=== PATIENT | female | born 1945 | race Caucasian/White ===

== ENCOUNTER → 2017-10-04 | Outpatient (CLI) | payer MEDICARE, OTHER ==
[~2017-10-04] MED LIST: ATOR10TA PO; CALC-98 PO; CETI10CA PO; CHOL200074 PO; EPIN0.3A4 IJ; IOHE350I IV; LORA2TAB PO; METAMUCIL425 GM PO; METF500T9 PO; METO100T5 PO; METO50TA4 PO; MULT-245 PO; SUCR1TAB PO; [UNRECOGNIZED DRUG - CODE] IV
--- NOTE | 2017-10-04 12:10 | RAD ---
EXAM: Left shoulder, 3 views. HISTORY: Pain. COMPARISON: None. FINDINGS: 3 views left shoulder obtained. There is severe glenohumeral joint space narrowing with subchondral sclerosis, subchondral cyst formation, marginal spurring and bony remodeling. There are inferior glenohumeral joint loose bodies. There is slight ossification or calcification along the distal rotator cuff insertion. IMPRESSION: 1. Severe glenohumeral osteoarthritis with joint loose bodies. 2. No acute osseous finding. Electronically signed by: Charlene Sloan MD (10/04/2017 12:06 PM) [facility]
== END | disposition home or self-care (01) ==
LOC: DXRAD 11:35
PROVIDERS: ATTEND Neuromusculoskeletal Medicine & OMM
DX: M19.012 Primary osteoarthritis, left shoulder (principal); M24.012 Loose body in left shoulder; G89.29 Other chronic pain
CPT/HCPCS: 73030

== ENCOUNTER → 2017-12-29 | Outpatient (CLI) | payer MEDICARE, OTHER ==
[~2017-12-29] MED LIST changes: +IOHEXOL 300 MG/ML 75 ML VIAL. IV ONE
[2017-12-29 11:17] LABS: GFR 54.2
--- NOTE | 2017-12-29 12:54 | RAD ---
PQRS Compliance statement: One or more of the following individualized dose reduction techniques were utilized for this examination: 1. Automated exposure control. 2. Adjustment of the mA and/or kV according to patient size. 3. Use of iterative reconstruction technique. Indication:GROSS HEMATURIA AND BILATERAL KIDNEY PAIN X2 MONTH REDUCED DOSE OMNI 300, 60ml, GFR 54 TECHNIQUE: CT abdomen and pelvis without and with IV contrast with multiplanar reformats. COMPARISON: Previous exam from 02/01/2013 FINDINGS: Heart is normal in size. Stable 3 mm nodule in the left lower lobe. Otherwise, clear lung bases. Liver, spleen, pancreas, adrenals within normal limits. Status post cholecystectomy. No nephrolithiasis or hydronephrosis. Bilateral ureters are normal in course and caliber. No enlarged retroperitoneal or pelvic adenopathy. No free pelvic fluid or ascites. No bowel obstruction. Normal appendix. Urinary bladder demonstrate no stones or focal lesion. Status post hysterectomy. No pneumoperitoneum. No suspicious bony lesion. IMPRESSION: 1. No nephrolithiasis, hydronephrosis or suspicious renal lesion. Electronically signed by: Yehuda Delgado DO (12/29/2017 12:51 PM) [id number]
== END | disposition home or self-care (01) ==
LOC: CT 10:03
PROVIDERS: ATTEND Urology
DX: R31.0 Gross hematuria (principal); Z90.49 Acquired absence of other specified parts of digestive tract
CPT/HCPCS: 36415; 74178; 82565; 84520; Q9967

== ENCOUNTER → 2018-03-07 | Outpatient (CLI) | payer MEDICARE, OTHER ==
[~2018-03-07] MED LIST changes: -IOHEXOL 300 MG/ML 75 ML VIAL. IV ONE
--- NOTE | 2018-03-07 12:14 | RAD ---
CHEST PA LATERAL CLINICAL INDICATION: Abnormal breath sounds COMPARISON: None FINDINGS: Heart is normal in size. Lungs are hyperinflated. No focal consolidation. No pneumothorax or effusion. Visualized bony thorax is within normal limits. IMPRESSION: Findings of COPD. No acute pulmonary process. Electronically signed by: Yehuda Delgado DO (03/07/2018 12:09 PM) [id number]
== END | disposition home or self-care (01) ==
LOC: RAD 11:37
PROVIDERS: ATTEND Registered Nurse
DX: J44.9 Chronic obstructive pulmonary disease, unspecified (principal)
CPT/HCPCS: 71046

== ENCOUNTER → 2018-03-15 | Outpatient (CLI) | payer MEDICARE, OTHER ==
--- NOTE | 2018-03-15 13:05 | RAD ---
EXAM: Renal sonogram; pelvic sonogram. HISTORY: Pain. TECHNIQUE: Sonographic imaging of the kidneys and pelvis were obtained. COMPARISON: CT dated 12/29/2017. FINDINGS: The right kidney measures 7.8 cm azsf-sw-qnsd. The left kidney measures 9.8 cm szof-gu-rnmx. No solid or cystic renal lesion is seen. There is no hydronephrosis. The bladder is unremarkable. The ureteral jets are both seen. The uterus is surgically absent. The right ovary is surgically absent. The left ovary is small in size, consistent with the postmenopausal status of the patient. No adnexal mass, cyst or free fluid is seen. IMPRESSION: 1. Decreased right renal size likely due to measurement technique or mild atrophy. 2. Surgically absent uterus and right ovary. The left ovary is not well seen due to small size, consistent with the postmenopausal status of the patient. Electronically signed by: Charlene Sloan MD (03/15/2018 1:01 PM) [facility]
--- NOTE | 2018-03-15 13:05 | RAD ---
EXAM: Renal sonogram; pelvic sonogram. HISTORY: Pain. TECHNIQUE: Sonographic imaging of the kidneys and pelvis were obtained. COMPARISON: CT dated 12/29/2017. FINDINGS: The right kidney measures 7.8 cm mkoc-af-xfoc. The left kidney measures 9.8 cm vtkw-uf-vmlw. No solid or cystic renal lesion is seen. There is no hydronephrosis. The bladder is unremarkable. The ureteral jets are both seen. The uterus is surgically absent. The right ovary is surgically absent. The left ovary is small in size, consistent with the postmenopausal status of the patient. No adnexal mass, cyst or free fluid is seen. IMPRESSION: 1. Decreased right renal size likely due to measurement technique or mild atrophy. 2. Surgically absent uterus and right ovary. The left ovary is not well seen due to small size, consistent with the postmenopausal status of the patient. Electronically signed by: Charlene Sloan MD (03/15/2018 1:01 PM) [facility]
== END | disposition home or self-care (01) ==
LOC: US 09:50
PROVIDERS: ATTEND Registered Nurse
DX: R10.2 Pelvic and perineal pain (principal); R10.10 Upper abdominal pain, unspecified; Z90.710 Acquired absence of both cervix and uterus; Z90.721 Acquired absence of ovaries, unilateral
CPT/HCPCS: 76770; 76830; 76856

== ENCOUNTER → 2018-06-06 | Outpatient (CLI) | payer MEDICARE, OTHER ==
[~2018-06-06] MED LIST changes: +IOHEXOL 300 MG/ML 75 ML VIAL. IV ONE
[2018-06-06 13:39] LABS: CALCIUM 9.5 mg/dL (8.5-10.1); CREATININE 0.9 mg/dL (0.6-1.0); POTASSIUM 4.1 mmol/L (3.5-5.1)
--- NOTE | 2018-06-06 16:35 | RAD ---
PQRS Compliance Statement: One or more of the following individualized dose reduction techniques were utilized for this examination: 1. Automated exposure control 2. Adjustment of the mA and/or kV according to patient size 3. Use of iterative reconstruction technique CT CHEST W/CONTRAST Clinical Indication: Abnormal breath sounds, Parkinson's disease, Pt unable to raise left arm over head. Comparison: None. Technique: Helical CT imaging of the chest is performed after 75 cc Omnipaque 350 IV contrast. Findings: The thyroid is symmetric. No adenopathy in the chest. Borderline ectatic ascending thoracic aorta. Pulmonary trunk is normal caliber. No central pulmonary embolus. Cardiac size normal, no pericardial effusion. Tortuous juxtarenal abdominal aorta. Coronary artery disease. There is no pleural effusion. The central airways are clear. There are several tree-in-bud opacities in the periphery of the posterior right upper lobe. There is focal mucous plugging in the right upper lobe, for example image 22. There is minimal scarring or atelectasis in the posterior lower lobes bilaterally. There is a 3 mm nodule in the periphery of the right lower lobe, image 55. There is an 8 mm nodular opacity in the lingula that may be atelectasis or scarring, image 69. There is a 4 mm nodule in the anterior left lower lobe, image 77. Cholecystectomy. No loss of vertebral body height in the thoracic spine. IMPRESSION: 1. There are mild tree-in-bud opacities in the periphery of the posterior right upper lobe suggestive of nonspecific bronchiolitis. There is minimal mucus plugging in the right upper lobe. Recommend appropriate therapy and follow-up CT chest in 3-6 months. 2. There are 3 noncalcified pulmonary nodules. Suggest attention on follow-up imaging. Electronically signed by: David Morrell MD (06/06/2018 4:32 PM) [id number]
== END | disposition home or self-care (01) ==
LOC: CT 12:42
PROVIDERS: ATTEND Registered Nurse
DX: R91.8 Other nonspecific abnormal finding of lung field (principal); I25.10 Atherosclerotic heart disease of native coronary artery without angina pectoris; Z90.49 Acquired absence of other specified parts of digestive tract
CPT/HCPCS: 36415; 71260; 80048; Q9967

== ENCOUNTER → 2018-11-03 | Outpatient (CLI) | payer MEDICARE, OTHER ==
[~2018-11-03] MED LIST changes: -IOHEXOL 300 MG/ML 75 ML VIAL. IV ONE; +METF500T11 PO; -METF500T9 PO
--- NOTE | 2018-11-03 09:51 | CARD ---
MR#: [id number] Date of Study: 11/03/2018 Ordering Physician: AIRAM GAMA, Referring Physician: AIRAM GAMA Tech: Yareli Blake RDCS APPROVED REPORT EXAM: Two-dimensional and M-mode echocardiogram with Doppler and color Doppler. INDICATION Hypertension/HCVD Abnormal CT Scan 2D DIMENSIONS Left Atrium(2D)2.5 (1.6-4.0cm)IVSd0.7 (0.7-1.1cm) Aortic Root(2D)2.8 (2.0-3.7cm)LVDd3.8 (3.9-5.9cm) LVOT Diameter1.6 (1.8-2.4cm)PWd0.7 (0.7-1.1cm) LVDs2.1 (2.5-4.0cm)FS (%) 30.0 % SV49.2 mlLVEF(%)60.0 (>50%) Aortic Valve AoV Peak Armen.113.6cm/sAoV VTI26.2cm AO Peak GR.5.2mmHgLVOT Peak Armen.118.5cm/s LVOT VTI 28.80cmAO Mean GR.3mmHg JAKY (VMAX)2.07ao1HLE (VTI)2.12cm2 AI P 1/2 Ieqw395pr Mitral Valve MV E Vtnpvgiw41.8cm/sMV DECEL JUYJ805gl MV A Ouhygxtd607.0cm/sE/A Ratio0.9 Tricuspid Valve TR P. Ntahtkia657um/sRAP NAIHIGSU8anAb TR Peak Gr.27nhHfNTGI59onDt Pulmonary Vein S1 Axpdqdnt95.6cm/sD2 Fcdngdhu22.6cm/s LEFT VENTRICLE The left ventricle is normal size. There is normal left ventricular wall thickness. The left ventricu lar systolic function is normal and the ejection fraction is within normal range. The Ejection Fracti on is 55-60%. There is normal LV segmental wall motion. Transmitral Doppler flow pattern is Grade I-a bnormal relaxation pattern. RIGHT VENTRICLE The right ventricle is normal size. The right ventricular systolic function is normal. ATRIA The left atrium size is normal. The right atrium size is normal. The interatrial septum is intact wit h no evidence for an atrial septal defect or patent foramen ovale as noted on 2-D or Doppler imaging. AORTIC VALVE The aortic valve is calcified but opens well. Doppler and Color Flow revealed mild aortic regurgitati on. There is no significant aortic valvular stenosis. MITRAL VALVE The mitral valve is calcified but opens well. Mitral annular calcification is mild. There is no evide nce of mitral valve prolapse. There is no mitral valve stenosis. Doppler and Color-flow revealed trac e mitral regurgitation. TRICUSPID VALVE The tricuspid valve is normal in structure and function. Doppler and Color Flow revealed trace tricus pid regurgitation. There is mild pulmonary hypertension. The PA pressure was estimated at 39 mmHg. Th ere is no tricuspid valve stenosis. PULMONIC VALVE The pulmonic valve is not well visualized. Doppler and Color Flow revealed no pulmonic valvular regur gitation. There is no pulmonic valvular stenosis. GREAT VESSELS The aortic root is normal in size. The ascending aorta is not well seen. The IVC is normal in size an d collapses >50% with inspiration. PERICARDIAL EFFUSION There is no evidence of significant pericardial effusion. Critical Notification Critical Value: No <Conclusion> The left ventricular systolic function is normal and the ejection fraction is within normal range. Th e Ejection Fraction is 55-60%. There is normal LV segmental wall motion. Doppler and Color Flow revealed mild aortic regurgitation. Doppler and Color Flow revealed trace tricuspid regurgitation. There is mild pulmonary hypertension. The PA pressure was estimated at 39 mmHg. Signed by : Julio Burns, Electronically Approved : 11/03/2018 09:51:36
[2018-11-03] MEDS: REGADENOSON 0.4 MG/5 ML DISP.SYRIN. IV ONE (11:10)
--- NOTE | 2018-11-03 12:13 | RAD ---
MR#: [id number] Date of Study: 11/03/2018 Ordering Physician: NILDA MENDEZ, Referring Physician: SATHISH ROLAND Tech: RT Brianna KellyR) (N) APPROVED REPORT Test Type: Pharmacological Stress Nurse/Tech: RT Leticia (Denia) (N) Test Indications: dyspnea on exertion, abnormal CT scan Cardiac History: none Medications: see EHR Medical History: hypertension, diabetes Resting ECG: sinus rythm Resting Heart Rate: 66 bpm Resting Blood Pressure: 145/68mmHg Pretest Chest Pain: None Nurse/Tech Notes Consent: The procedure was explained to the patient in lay terms. Informed consent was witnessed. Didier eout was entered into [facility]. History and Stress Test performed by RT Leticia (Denia) (N) Pharm. Details Pharmacologic stress testing was performed using 0.4mg per 5ml of regadenoson given intravenously ove r 7-10 seconds. POST EXERCISE Reason for Termination: Infusion complete Max HR: 125 bpm Max Blood Pressure: 175/78mmHg INTERPRETATION Stress EKG Conclusion: No acute changes were noted. Imaging Protocol IMAGE PROTOCOL: Rest Tc-99m/stress Tc-99m 1 day Rest: Stress: Viability: Radiopharm.Tc99m OcwlcvbyxHn21b Sestamibi Dose10.4mCi 31.6mCi Duration 15min. 10min. Img Date 11/03/2018 11/03/2018 Inj-Img Ijfw85vac. 60min. Rest Admin Site:IV - Left AntecubitalAdministrator: RT Leticia (Denia)(N) Stress Admin Site: IV - Left AntecubitalAdministrator: RT Reena Kelly)(N) STRESS DATA End Diast. Vol.35.0mlAv. Heart Rate78.0bpm End Syst. Vol.1.0mlCO Index BSA0.0L/min Myocardial Mass81.0gEject. Dctkzxlu63.0% Stress Rates Pk. Fill Rate4.83EDV/secLVtime Pk. Fill 246.55msec Pk. Empty Rate5.83ESV/secLVtime Pk. Gmiqe148.92msec 1/3 Pk. Fill0.16EDV/sec Stress Scores Regional WT0.00Summed WT0.00 Regional WM0.00Summed WM0.00 The rest and stress images show normal perfusion, normal contraction and thickening. LV Perf. Quant 17 Seg. SSS0.00 17 Seg. SRS0.00 17 Seg. SDS0.00 Stress Defect Extent (% LAD)0.00Rest Defect Extent (% LAD)0.00Rev. Defect Extent (% LAD)0.00 Stress Defect Extent (% LCX) 0.00Rest Defect Extent (% LCX)0.00Rev. Defect Extent (% LCX)0.00 Stress Defect Extent (% RCA)0.00Rest Defect Extent (% RCA)0.00Rev. Defect Extent (% RCA)0.00 Stress Defect Extent (% MANI)0.00Rest Defect Extent (% MANI)0.00Rev. Defect Extent (% MANI)0.00 Other Information Quality:Good Risk Assessment: Low Risk Conclusion 1. No evidence of EKG changes with stress testing. 2. Normal perfusion at stress/rest. 3. Low risk study. 4. EF > 60%. Signed by : Nilda Mendez, Electronically Approved : 11/03/2018 12:12:58
== END | disposition home or self-care (01) ==
LOC: NM 07:49
PROVIDERS: ATTEND Internal Medicine Cardiovascular Disease
DX: I08.0 Rheumatic disorders of both mitral and aortic valves (principal); I27.20 Pulmonary hypertension, unspecified; I10 Essential (primary) hypertension; E11.9 Type 2 diabetes mellitus without complications
CPT/HCPCS: 78452; 93017; 93306; A9500; J2785

== ENCOUNTER → 2018-11-15 | Outpatient (CLI) | payer MEDICARE, OTHER ==
[~2018-11-15] MED LIST changes: +IOHEXOL 240 MG/ML 50ML VIAL. ONE; +IOHEXOL 240 MG/ML 50ML VIAL. PO ONE; +IOHEXOL 300 MG/ML 75 ML VIAL. IV ONE
--- NOTE | 2018-11-15 16:21 | RAD ---
Examination: CT ABD PELV W/ORAL IV CONTRAST History: Frequent UTI, weight loss Comparison/Correlation: 12/29/2017 CT abdomen and pelvis without contrast Findings: Axial images of the abdomen and pelvis were obtained following IV and oral contrast. Sagittal and coronal reformatted images were provided. Visualized lung bases are clear. Liver, spleen, pancreas, and adrenal glands are normal. Cholecystectomy is evident. Kidneys are unremarkable. No ascites or pelvic free fluid. No enlarged lymph nodes. Limited mesenteric fat may limit assessment. No bowel obstruction or extraluminal gas. No inflammatory change about the cecum. Urinary bladder is unremarkable. Bladder is mostly decompressed. No acute bony process. Impression: No suspicious process. PQRS Compliance Statement: One or more of the following individualized dose reduction techniques were utilized for this examination: 1. Automated exposure control 2. Adjustment of the mA and/or kV according to patient size 3. Use of iterative reconstruction technique Electronically signed by: Moy Garcia MD (11/15/2018 4:18 PM) [facility]
== END | disposition home or self-care (01) ==
LOC: CT 08:00
PROVIDERS: ATTEND Registered Nurse
DX: N39.0 Urinary tract infection, site not specified (principal); R63.4 Abnormal weight loss
CPT/HCPCS: 74177; Q9966; Q9967

== ENCOUNTER → 2019-01-20 | Outpatient (CLI) | payer MEDICARE, OTHER ==
[~2019-01-20] MED LIST changes: -IOHEXOL 240 MG/ML 50ML VIAL. ONE; -IOHEXOL 240 MG/ML 50ML VIAL. PO ONE; -IOHEXOL 300 MG/ML 75 ML VIAL. IV ONE
--- NOTE | 2019-01-20 17:08 | RAD ---
Chest CT without contrast Clinical indications: Lung nodules. Follow-up study. COMPARISON: Chest CT dated June 06, 2018. TECHNIQUE: Noncontrast helical CT scanning of the chest was performed. Without contrast, the sensitivity to detect organ pathology is decreased. PQRS compliance Statement One or more of the following individualized dose reduction techniques were utilized for this study: 1. Automated exposure control 2. Adjustment of the mA and/or kV according to patient size 3. Use of iterative reconstruction technique FINDINGS: No enlarging thoracic lymphadenopathy is evident. The ascending aorta is dilated measuring up to 4.0 cm. This measured 3.8 cm previously. Heart size is normal and no pericardial effusion is evident. There is calcified atheromatous disease of the coronary arteries. Right adrenal gland is not completely seen in this study. No enlarging left adrenal gland is seen. There is persistent tree-in-bud nodular lung infiltrates within the lateral and posterior aspect of the right upper lobe which is unchanged. Again seen is mucus plugging within the right upper lobe bronchi specifically images 47 and 85 and series 2. The more proximal bronchial tree is patent. There is bilateral bronchitis and mild bronchiectasis. Right apical and left apical pleural thickening and nodular scarring is again seen. On image 170, there is a small subcentimeter lung nodule within the lateral aspect of the right lower lobe which is stable. The previously seen area of atelectasis within the posterior lateral aspect of the inferior segment of the lingula is unchanged. There is a new area of atelectasis more medially within the same segment of the lingula. Subcentimeter lung nodule within the anterolateral aspect left lower lobe seen previously is unchanged and is seen on image 249 today. On image 274, there is a subcentimeter lung nodule within the inferior segment of the lingula is stable. No new lung nodules are seen. There is chronic scarring or atelectasis within the posterior inferior lower lobes bilaterally which is stable. No lytic process is seen. IMPRESSION: Persistent unchanged tree-in-bud lung infiltrates within the posterior lateral aspect of the right upper lobe. Mucous plugs within the distal airways of the right upper lobe are again seen. Findings are consistent with distal airway inflammatory or infectious disease. Bilateral bronchiectasis and bronchitis. Note - these tree-in-bud lung infiltrates have been present dating back to December 24, 2014 study. Bilateral subcentimeter lung nodules stable since June 06, 2018. These were not seen previously in 2015. Therefore continued chest CT follow-up in 12-18 months is recommended as per Fleischner guidelines.. Calcified atheromatous disease of the coronary arteries. Ectasia of the ascending aorta. Electronically signed by: Harvey Ryan MD (01/20/2019 5:05 PM) [facility]
== END | disposition home or self-care (01) ==
LOC: CT 11:08
PROVIDERS: ATTEND Internal Medicine Pulmonary Disease
DX: T17.890A Other foreign object in other parts of respiratory tract causing asphyxiation, initial encounter (principal); I25.10 Atherosclerotic heart disease of native coronary artery without angina pectoris; R91.8 Other nonspecific abnormal finding of lung field; J98.11 Atelectasis; J47.9 Bronchiectasis, uncomplicated; J40 Bronchitis, not specified as acute or chronic; I77.819 Aortic ectasia, unspecified site; X58.XXXA Exposure to other specified factors, initial encounter; Y93.89 Activity, other specified; Y92.89 Other specified places as the place of occurrence of the external cause; Y99.8 Other external cause status
CPT/HCPCS: 71250

== ENCOUNTER → 2020-07-16 | Outpatient (CLI) | payer MEDICARE, OTHER ==
[~2020-07-16] MED LIST changes: +METF-658 PO; -METF500T11 PO; +[UNRECOGNIZED DRUG - CODE] IV; -[UNRECOGNIZED DRUG - CODE] IV
--- NOTE | 2020-07-17 11:02 | CARD ---
MR#: [id number] Date of Study: 07/16/2020 Ordering Physician: AIRAM GAMA, Referring Physician: AIRAM GAMA, Tech: Angeles Boo [facility] APPROVED REPORT EXAM: Two-dimensional and M-mode echocardiogram with Doppler and color Doppler. Other Information Quality : AverageHR: 79bpm Technically limited study due to patient supine INDICATION Palpitations RISK FACTORS Hypertension Diabetes 2D DIMENSIONS RVDd2.0 (2.9-3.5cm)Left Atrium(2D)2.4 (1.6-4.0cm) IVSd0.9 (0.7-1.1cm)Aortic Root(2D)3.3 (2.0-3.7cm) LVDd3.5 (3.9-5.9cm)LVOT Diameter1.9 (1.8-2.4cm) PWd0.9 (0.7-1.1cm)LVDs2.3 (2.5-4.0cm) FS (%) 35.5 %SV34.2 ml Aortic Valve AoV Peak Armen.130.0cm/sAoV VTI30.6cm AO Peak GR.6.8mmHgLVOT Peak Armen.106.6cm/s LVOT VTI 26.74cmAO Mean GR.4mmHg JAKY (VMAX)2.91gb3RXF (VTI)2.40cm2 Mitral Valve MV E Idlcjkko84.8cm/sMV DECEL BYKY435jh MV A Epykqjkf545.1cm/sE/A Ratio1.0 Pulmonary Valve PV Peak Pqvpdzeh67.3cm/sPV Peak Grad.4mmHg Tricuspid Valve TR P. Tvlaywju410fn/sRAP EQLKVMDW6lsGn TR Peak Gr.85ikOrFNHP84afOv Pulmonary Vein S1 Sazreoxr29.0cm/sD2 Xvxtvtrk70.0cm/s LEFT VENTRICLE The left ventricle is normal size. There is borderline concentric left ventricular hypertrophy. The l eft ventricular systolic function is normal and the ejection fraction is within normal range. The Eje ction Fraction is 55-60%. There is normal LV segmental wall motion. Transmitral Doppler flow pattern is Grade I-abnormal relaxation pattern. RIGHT VENTRICLE The right ventricle is normal size. There is normal right ventricular wall thickness. The right ventr icular systolic function is normal. ATRIA The left atrium size is normal. The right atrium size is normal. The interatrial septum is intact wit h no evidence for an atrial septal defect or patent foramen ovale as noted on 2-D or Doppler imaging. AORTIC VALVE The aortic valve is mildly to moderately thickened. Doppler and Color Flow revealed trace aortic regu rgitation. There is no significant aortic valvular stenosis. Calculated aortic valve area is 2.4 cm2 with maximum pressure gradient of 7 mmHg and mean pressure gradient of 4 mmHg. MITRAL VALVE The mitral valve is normal in structure and function. Mitral annular calcification is mild. There is no evidence of mitral valve prolapse. There is no mitral valve stenosis. Doppler and Color-flow revea led trace mitral regurgitation. TRICUSPID VALVE The tricuspid valve is normal in structure and function. Doppler and Color Flow revealed trace tricus pid regurgitation with an estimated PAP of 38 mmHg. There is no tricuspid valve stenosis. PULMONIC VALVE The pulmonic valve is not well visualized. Doppler and Color Flow revealed no pulmonic valvular regur gitation. GREAT VESSELS The aortic root is normal in size. The ascending aorta is normal in size. The IVC is normal in size a nd collapses >50% with inspiration. PERICARDIAL EFFUSION There is no evidence of significant pericardial effusion. Critical Notification Critical Value: No <Conclusion> The left ventricle is normal size. The left ventricular systolic function is normal and the ejection fraction is within normal range. The Ejection Fraction is 55-60%. There is borderline concentric left ventricular hypertrophy. Doppler and Color Flow revealed trace aortic regurgitation. There is no significant aortic valvular stenosis. Doppler and Color-flow revealed trace mitral regurgitation. Doppler and Color Flow revealed trace tricuspid regurgitation with an estimated PAP of 38 mmHg. Signed by : Sea Michaels MD Electronically Approved : 07/17/2020 11:01:46
== END ==
LOC: ECHO 07:53
PROVIDERS: ATTEND Internal Medicine Cardiovascular Disease
DX: I34.0 Nonrheumatic mitral (valve) insufficiency (principal); I51.7 Cardiomegaly; R93.89 Abnormal findings on diagnostic imaging of other specified body structures
CPT/HCPCS: 93306

== ENCOUNTER → 2021-05-21 | Outpatient (CLI) | payer MEDICARE, OTHER ==
--- NOTE | 2021-05-21 16:38 | RAD ---
DXA BONE DENSITY AXIAL History: Reason: OSTEOPENIA / Spl. Instructions: / History: Postmenopausal Comparison: None. TECHNIQUE: Dual energy x-ray absorptiometry of the lumbar spine and right hip was performed. T-score of average bone mineral density based was calculated based on standard deviations above or below the expected young adult normal value. Diagnostic definitions were established by the [employer] z[employer]. FINDINGS: The average bone mineral density associated with L1-L4 is 0.798 g/cm^2, corresponding with a T-score of -3.2. The average total bone mineral density associated with right hip is 0.587 g/cm^2, corresponding with a T-score of -3.0. Refer to the worksheets for full detail. IMPRESSION: 1. Osteoporosis. Average bone mineral density yields a T-score of -2.5 or less. Fracture risk is hig h. Electronically signed by: Larry Hopkins DO (05/21/2021 4:35 PM) [id number]
== END ==
LOC: DXRAD 10:02
PROVIDERS: ATTEND Physician Assistant
DX: Z00.00 Encounter for general adult medical examination without abnormal findings (principal); M81.0 Age-related osteoporosis without current pathological fracture; M85.80 Other specified disorders of bone density and structure, unspecified site
CPT/HCPCS: 77080